=== PATIENT | female | born 1965 | race Caucasian/White ===

== ENCOUNTER 2016-11-26 12:05 | Inpatient (IN) ==
--- NOTE | 2016-11-26 12:33 | Emergency Department Note ---
Disposition Clinical Impression: Bite by animal, Cellulitis of hand Disposition: Admitted As Inpatient Condition: Good Referrals: NO,PCP [Primary Care Provider] - Forms: ED Satisfaction Letter Animal Bite HPI - General Chief Complaint: ED Animal Bite Stated Complaint: Dog Bites Time Seen by Provider: 11/26/16 12:14 Source: patient Limitations: no limitations Nursing Notes Reviewed: Yes Vital Signs Reviewed: Yes - History of Present Illness HPI Narrative: Patient comes complaint of dog bite occurred for to 5 days ago. Patient states the dog bit her over fingers and she presented to an outside hospital for evaluation. Patient states that was given IV antibiotics and started on oral pills and advised to come back for recheck. Patient states that she was unable to take oral pills because it made her vomit since this was a different medication. Patient is swelling and the pain has gotten worse over this time. Patient has inability to flex her fingers secondary to pain. Patient denies numbness and tingling denies fevers or chills associated. Patient as well as extended her head. - Related Data Home Medications Medication Instructions Recorded Confirmed Alprazolam [Xanax] 2 mg PO BID 12/10/15 11/24/16 Amitriptyline [Elavil] 10 mg PO HS 12/10/15 11/24/16 Aspirin [Adult Low Dose Aspirin EC] 81 mg PO DAILY 12/10/15 11/24/16 Baclofen [Lioresal] 10 mg PO TID 12/10/15 11/24/16 BuPROPion SR (12 HR) [Wellbutrin 150 mg PO BID 12/10/15 11/24/16 SR] Ergocalciferol (VITAMIN D2) 50,000 unit PO QWEEK 12/10/15 11/24/16 [Vitamin D2 (50,000 UNIT)] Gabapentin [Neurontin] 600 mg PO TID 12/10/15 11/24/16 Hydrochlorothiazide 25 mg PO DAILY 12/10/15 11/24/16 Potassium Chloride [K-Tab ER] 20 meq PO BID 12/10/15 11/24/16 Prazosin HCl [Minipress] 2 mg PO HS 12/10/15 11/24/16 Sertraline [Zoloft] 100 mg PO QPM 12/10/15 11/24/16 Sertraline [Zoloft] 200 mg PO DAILY 12/10/15 11/24/16 Simvastatin [Zocor] 20 mg PO HS 12/10/15 11/24/16 Previous Rx's Medication Instructions Recorded Doxycycline Hyclate [Vibramycin] 100 mg PO BID #20 capsule 11/24/16 Ciprofloxacin [Cipro] 500 mg PO BID #13 tablet 11/25/16 Clindamycin [Cleocin] 300 mg PO Q6HR #56 capsule 11/25/16 Allergies Allergy/AdvReac Type Severity Reaction Status Date / Time Penicillins [PCN] Allergy Hives Verified 11/26/16 13:27 codeine AdvReac Vomiting Verified 11/26/16 13:27 All systems ED: reviewed and negative except as stated. Past Medical History - Past Medical History Source: patient Medical history: Reports: COPD, hyperlipidemia Psychiatric history: Reports: anxiety, depression, PTSD - Social History Smoking Status: Current every day smoker Smokeless Tobacco Status: No Alcohol use: Reports: none Drug use: Reports: none Physical Exam - General Limitations: no limitations General appearance: alert, in no apparent distress - Head Head exam: atraumatic, normocephalic, normal inspection - Eye Eye exam: Present: normal appearance, PERRL, EOMI - ENT ENT exam: normal exam, normal oropharynx, mucous membranes moist - Neck Neck exam: Present: normal inspection, full ROM, trachea midline - Chest Chest inspection: Present: normal inspection, symmetric chest wall rise - Respiratory Respiratory exam: Present: normal lung sounds bilaterally - Cardiovascular Cardiovascular exam: Present: regular rate, normal rhythm, normal heart sounds - Abdominal Exam Abdominal exam: Present: soft, Non-Tender. Absent: tenderness, distention, guarding, rebound, rigidity - Extremities Exam Extremities exam: Present: other (Left index fingers held in a extended position secondary to pain and swelling. Patient appears to have tenderness along the tendon sheath. There is some swelling extending now to the thenar compartment no erythema in that area.) - Back Exam Back exam: Present: normal inspection, full ROM. Absent: tenderness - Neurological Exam Neurological exam: Present: alert, oriented X3 - Psychiatric Psychiatric exam: Present: normal affect, normal mood - Skin Skin exam: Present: warm, dry, intact, normal color Course Vital Signs Temperature 97.4 F L 11/26/16 12:07 Pulse Rate 79 11/26/16 12:07 Respiratory Rate 18 11/26/16 12:07 Blood Pressure 139/80 11/26/16 12:07 O2 Sat by Pulse Oximetry 98 11/26/16 12:07 Temperature 97.4 F L 11/26/16 12:07 Pulse Rate 77 11/26/16 12:43 Respiratory Rate 18 11/26/16 12:43 Blood Pressure 102/63 11/26/16 12:43 O2 Sat by Pulse Oximetry 99 11/26/16 12:43 Oxygen Delivery Oxygen Delivery Room Air Animal Bite - Differential Diagnosis Differential Diagnosis: Likely: bite by animal, dog bite - Lab Data Result diagrams: 11/26/16 12:32 11/26/16 12:32 Lab Results 11/26/16 11/26/16 Range/Units 12:32 12:32 WBC 6.5 (4.3-11.1) K/mcL RBC 4.35 (3.82-4.97) M/mcL Hgb 13.3 (11.5-15.4) g/dL Hct 39.1 (35.3-44.9) % MCV 89.9 (83.0-100.0) fL MCH 30.6 (28.0-33.3) pg MCHC 34.0 (31.6-35.5) g/dL RDW 14.6 H (11.5-14.5) % Plt Count 170 (140-400) K/mcL MPV 9.7 (9.4-12.4) fL Immature Gran % 0.2 (0-4) % Seg Neutrophils % 62.3 % Lymphocytes % 24.5 % Monocytes % 9.3 % Eosinophils % 3.2 % Basophils % 0.5 % Neutrophils # 4.1 (1.6-8.9) K/mcL Lymphocytes # 1.6 (0.6-4.6) K/mcL Monocytes # 0.6 (0.0-1.3) K/mcL Eosinophils # 0.2 (0.0-0.6) K/mcL Basophils # 0.0 (0.0-0.2) K/mcL Sodium 137 (136-145) mEq/L Potassium 4.1 (3.5-4.5) mEq/L Chloride 103 (98-109) mEq/L Carbon Dioxide 24 (19-29) mEq/L BUN 21 H (7-20) mg/dL Creatinine 1.10 (0.57-1.11) mg/dL Est GFR ( Amer) > 60 (> 60) Est GFR (Non-Af Amer) 52 L (> 60) BUN/Creatinine Ratio 19 (6-26) Glucose 99 (70-99) mg/dL Calculated Osmolality 287 (280-300) Calcium 9.0 (8.6-10.8) mg/dL - Radiology Data Radiology results reviewed: Yes I reviewed the patient's radiology results. Hand X-Ray 11/26/16 12:17 IMPRESSION: No acute bone or joint abnormality. Soft tissue edema greatest surrounding the 2nd distal phalanx. D/ / Artur Patel MD / Artur Patel MD Interpreting Provider: Artur Patel MD
[2016-11-26 12:43] LABS: Basophils % 0.5 %; Eosinophils # 0.2 K/mcL (0.0-0.6); Eosinophils % 3.2 %; Hematocrit 39.1 % (35.3-44.9); Hemoglobin 13.3 g/dL (11.5-15.4); Immature Granulocytes % 0.2 % (0-4); Lymphocytes # 1.6 K/mcL (0.6-4.6); Lymphocytes % 24.5 %; Mean Corpuscular Hemoglobin 30.6 pg (28.0-33.3); Mean Corpuscular Volume 89.9 fL (83.0-100.0); Mean Platelet Volume 9.7 fL (9.4-12.4); Monocytes # 0.6 K/mcL (0.0-1.3); Monocytes % 9.3 %; Neutrophils # 4.1 K/mcL (1.6-8.9); Platelet Count 170 K/mcL (140-400); Red Blood Count 4.35 M/mcL (3.82-4.97); Red Cell Distribution Width 14.6 % (11.5-14.5); Segmented Neutrophils % 62.3 %
[2016-11-26 12:56] LABS: BUN/Creatinine Ratio 19 (6-26); Blood Urea Nitrogen 21 mg/dL (7-20); Carbon Dioxide 24 mEq/L (19-29); Chloride 103 mEq/L (98-109); Glucose 99 mg/dL (70-99); Osmolality,Calculated 287 (280-300); Potassium 4.1 mEq/L (3.5-4.5); Sodium 137 mEq/L (136-145); eGFR For African Americans > 60 (> 60); eGFR For Non-African Americans 52 (> 60)
--- NOTE | 2016-11-26 13:50 | Internal Med History&Physical ---
Date of Encounter: 11/26/16 Time of Encounter: 13:30 Assessment and Plan (1) Cellulitis of hand Current visit: Yes Status: Acute Cellulitis involving the left hand index and first fingers from dog bite. Failed outpatient antibiotic treatment. Will start intravenous antibiotics. If no improvement or if cellulitis worsens will consult orthopedics. High risk for complications including sepsis. (2) Dog bite Current visit: Yes Status: Acute Qualifiers: Encounter type: initial encounter Qualified Code(s): W54.0XXA - Bitten by dog, initial encounter (3) Essential hypertension Current visit: Yes Status: Chronic Controlled. Monitor blood pressure and continue home medications. (4) Hyperlipidemia Current visit: Yes Status: Chronic Continue fenofibrate and simvastatin. Qualifiers: Hyperlipidemia type: mixed hyperlipidemia Qualified Code(s): E78.2 - Mixed hyperlipidemia Internal Medicine - H&P: HPI Chief complaint: Left hand dog bite with swelling and redness Admitted From: Emergency Dept Plans for Post Hospital Care: Home History of present illness: Ms. Senior is a 51 year old female patient with a history of hypertension, hyperlipidemia. We are today with complaints of left hand redness and swelling involving the left index finger and thumb following a dog bite. Apparently the dog bite occurred 5 days back. Patient was seen in the ER at [facility] and was placed on doxycycline initially. She however did not tolerate this medication and went back to the ER. She was then placed on clindamycin yesterday. However her swelling has not improved and so she came to the ER again today. She describes pain involving the left first and second fingers with decreased range of motion at the distal phalanx. Denies any fevers chills or night sweats. No nausea or vomiting. No diarrhea or constipation. Past Med Surg Social Fam HX - Past Medical History Medical history: COPD, hyperlipidemia Psychiatric history: anxiety, depression, PTSD - Past Surgical History Surgical History: other (Bladder stimulator device placement) - Social History Smoking Status: Current every day smoker Smokeless Tobacco Status: No Alcohol use: none Drug use: none Internal Medicine - H&P: Meds Alprazolam [Xanax] 2 mg PO BID 12/10/15 [History] Aspirin [Adult Low Dose Aspirin EC] 81 mg PO DAILY 12/10/15 [History] Baclofen [Lioresal] 10 mg PO TID 12/10/15 [History] Potassium Chloride [K-Tab ER] 20 meq PO BID 12/10/15 [History] Prazosin HCl [Minipress] 2 mg PO HS 12/10/15 [History] Sertraline [Zoloft] 100 mg PO QPM 12/10/15 [History] Simvastatin [Zocor] 20 mg PO HS 12/10/15 [History] Fenofibrate [Tricor] 54 mg PO DAILY 11/26/16 [History] HYDROcodone/Acet 5/325 mg [[place] 5-325 mg] 1 tab PO BID PRN 11/26/16 [History] Hydrochlorothiazide [Hydrochlorothiazide] 12.5 mg PO DAILY 11/26/16 [History] Lurasidone HCl [Latuda] 60 mg PO DAILY 11/26/16 [History] [place]-3/Dha/Epa/Fish Oil [Fish Oil 1,000 mg Softgel] 1 each PO DAILY 11/26/16 [ History] Propranolol [Inderal] 10 mg PO BID 11/26/16 [History] Allergies Penicillins [PCN] Allergy (Verified 11/26/16 13:27) Hives codeine Adverse Reaction (Verified 11/26/16 13:27) Vomiting All Systems PM: A 10-system review of systems was performed and is negative for pertinent findings except as documented above in the HPI. - Constitutional Constitutional: no chills, no fever(s), no night sweats - EENT Eyes: no change in vision, no discharge, no pain, no photophobia Ears: no ear discharge, no ear pain, no tinnitus Nose, mouth and throat: no dysphagia, no nasal discharge, no neck pain, no sore throat - Cardiovascular Cardiovascular ROS IM: no chest pain, no diaphoresis, no dyspnea, no lightheadedness, no palpitations, no syncope - Respiratory Respiratory: no cough, no dyspnea, no wheezing, no excessive phlegm production - Gastrointestinal Gastrointestinal: no abdominal pain, no diarrhea, no hematemesis, no hematochezia, no melena, no nausea, no vomiting - Genitourinary Genitourinary: no change in urinary stream, no dysuria, no flank pain, no hematuria - Musculoskeletal Musculoskeletal ROS IM: no numbness, no tingling - Integumentary Integumentary IM: other (Swelling and redness involving the left hand fingers), no rash, no unusual bruising - Neurological Neurological ROS: no confusion, no convulsions, no focal weakness, no numbness, no tingling, no tremor(s) - Constitutional Vitals: Temp Pulse Resp BP Pulse Ox 97.4 F L 77 18 102/63 99 11/26/16 12:07 11/26/16 12:43 11/26/16 12:43 11/26/16 12:43 11/26/16 12:43 General appearance: Present: cooperative, mild distress, A&O X 3, obese, answers questions appropriately - Head Head exam: Present: atraumatic, normocephalic - Eye Eye exam: Present: EOMI, PERRL, conjuntiva pink, sclera anicteric - Neck Neck exam general surgery: Present: supple, trachea midline. Absent: lymphadenopathy - Respiratory Respiratory exam: Present: CTAB. Absent: accessory muscle use, rales, rhonchi, wheezes - Cardiovascular Cardiovascular exam: Present: RRR, +S1, +S2. Absent: diastolic murmur, gallop, rubs, systolic murmur - GI/Abdominal GI/Abdominal exam: Present: normal bowel sounds, soft, no peritoneal signs. Absent: distended, tenderness - Extremities Exam Extremities exam: Present: warm, radial pulses palpable and symetrical. Absent : calf tenderness, cyanotic, pedal edema Additional comments: Erythema and redness involving the index and first fingers of the left hand and the tongue of the right hand. More pronounced in the left hand with decreased range of motion at the distal phalanx. No palpable abscess. - Neurological Exam Neurological exam: Present: alert, CN II-XII intact, oriented X3, no focal deficits. Absent: facial droop, speech deficit - Skin Skin exam: Present: dry, erythema (as Described above ), intact Internal Med - H&P Results - Labs CBC & Chem 7: 11/26/16 12:32 11/26/16 12:32 Labs: Short CBC 11/26/16 Range/Units 12:32 WBC 6.5 (4.3-11.1) K/mcL Hgb 13.3 (11.5-15.4) g/dL Hct 39.1 (35.3-44.9) % Plt Count 170 (140-400) K/mcL Neutrophils # 4.1 (1.6-8.9) K/mcL BMP 11/26/16 12:32 Sodium 137 Potassium 4.1 Chloride 103 Carbon Dioxide 24 BUN 21 H Creatinine 1.10 Glucose 99 Calcium 9.0 - Impressions ITS Impressions Hand X-Ray 11/26/16 12:17 IMPRESSION: No acute bone or joint abnormality. Soft tissue edema greatest surrounding the 2nd distal phalanx. D/ / Artur Patel MD / Artur Patel MD Interpreting Provider: Artur Patel MD - Attending Attestation This document has been at least partially created by [employer] recognition technology by Dr. Melendez. Errors in grammar, wording or other phrases may exist. If errors are found after the documentation is signed, they will be addressed individually in the addendum section of this document when appropriate.
[2016-11-26] MEDS ORDERED: Naloxone 0.4 MG/ML INJ IVP PRN (13:56)
[2016-11-26] MEDS ORDERED: Acetaminophen 325 MG TABLET PO PRN (13:56)
[2016-11-26] MEDS: Levofloxacin 750 MG/150 ML 750 MG/150 ML BAG IVPB SCH (16:10)
[2016-11-26] MEDS: MetroNIDAZOLE 500 MG/100 ML 500 MG/100 ML BAG IVPB SCH ×2 (16:11→23:52)
[2016-11-26] MEDS: 0.9 % Sodium Chloride 1,000 ML IVC SCH (16:11)
[2016-11-26] MEDS: Baclofen 10 MG TABLET PO SCH ×2 (16:12→21:24)
[2016-11-26] MEDS: *HR* Heparin 5,000 UNIT/ML VIAL SQ SCH (18:38)
[2016-11-26] MEDS: *HR* HYDROcodone/Acet 5/325 mg TABLET PO PRN (18:39)
[2016-11-26] MEDS: ALPRAZolam 1 MG TABLET PO SCH (21:24)
[2016-11-26] MEDS: Nicotine 21 MG PATCH.TD24 TD SCH (21:32)
[2016-11-27 05:11] LABS: Basophils % 0.3 %; Eosinophils # 0.1 K/mcL (0.0-0.6); Eosinophils % 3.1 %; Hematocrit 36.1 % (35.3-44.9); Immature Granulocytes % 0.3 % (0-4); Lymphocytes # 1.2 K/mcL (0.6-4.6); Lymphocytes % 34.8 %; Mean Corpuscular HGB Conc 32.4 g/dL (31.6-35.5); Mean Corpuscular Hemoglobin 29.3 pg (28.0-33.3); Mean Corpuscular Volume 90.3 fL (83.0-100.0); Mean Platelet Volume 9.9 fL (9.4-12.4); Monocytes # 0.3 K/mcL (0.0-1.3); Monocytes % 9.6 %; Neutrophils # 1.9 K/mcL (1.6-8.9); Platelet Count 140 K/mcL (140-400); Red Cell Distribution Width 14.6 % (11.5-14.5); Segmented Neutrophils % 51.9 %
[2016-11-27 05:16] LABS: Hemoglobin 11.7 g/dL (11.5-15.4)
[2016-11-27 05:36] LABS: BUN/Creatinine Ratio 18 (6-26); Blood Urea Nitrogen 19 mg/dL (7-20); Calcium 8.2 mg/dL (8.6-10.8); Carbon Dioxide 24 mEq/L (19-29); Chloride 107 mEq/L (98-109); Glucose 106 mg/dL (70-99); Osmolality,Calculated 295 (280-300); Potassium 3.8 mEq/L (3.5-4.5); Sodium 141 mEq/L (136-145); eGFR For African Americans > 60 (> 60); eGFR For Non-African Americans 55 (> 60)
[2016-11-27] MEDS: *HR* Heparin 5,000 UNIT/ML VIAL SQ SCH ×2 (06:05→17:43)
[2016-11-27] MEDS: 0.9 % Sodium Chloride 1,000 ML IVC SCH ×2 (06:06→15:21)
[2016-11-27] MEDS: MetroNIDAZOLE 500 MG/100 ML 500 MG/100 ML BAG IVPB SCH ×3 (07:56→23:46)
[2016-11-27] MEDS: Baclofen 10 MG TABLET PO SCH ×3 (07:56→20:20)
[2016-11-27] MEDS: Fenofibrate 54 MG TABLET PO SCH (07:57)
[2016-11-27] MEDS: Aspirin Enteric Coated 81 MG Tablet PO SCH (07:57)
[2016-11-27] MEDS: ALPRAZolam 1 MG TABLET PO SCH ×2 (07:58→20:19)
[2016-11-27] MEDS: Nicotine 21 MG PATCH.TD24 TD SCH (07:58)
[2016-11-27] MEDS: hydroCHLOROthiazide 25 MG TABLET PO SCH (07:58)
[2016-11-27] MEDS: *HR* HYDROcodone/Acet 5/325 mg TABLET PO PRN ×3 (07:58→20:20)
[2016-11-27] MEDS: (Omega-3/Dha/Epa/Fish Oil [Fish Oil 1,000 Mg Softgel]) PO SCH (07:59)
--- NOTE | 2016-11-27 14:36 | Internal Med Progress Note ---
Date of Encounter: 11/27/16 Time of Encounter: 08:00 - Assessment and plan (1) Cellulitis of hand Current Visit: Yes Status: Acute Assessment and plan: Pt was bitten by her own dog 6 days ago. She states that she plays roughly with the dog and he bit her too hard. Dog is UTD on immunizations and lives inside. Pt went to ED on day 3 after the bite and was given IV Doxycycline then sent home on po Doxy. Pt states that she took one dose that night and became ill. She had a follow up appointment in the ED the next day and was given po Clindamycin and Cipro. Pt returns yesterday for worsening symptoms and increasing pain and redness. She is being given IV Flagyl and Levaquin, she is allergic to PCN and cannot have Unasyn. Finger is red and swollen with small amount serous drainage on bandaid. Pt was seen by Dr. Cowart who will come back later this afternoon and open wounds to attempt to drain them. Pt will be NPO after midnight in preparation for possible, improbable need for surgery in the a.m. Pt has been afebrile and sl hypotensive.Xray shows no fracture or dislocation, no fb or soft tissue air, no bone distruction, soft tissue edema greatest surronding the 2nd distal phalanx. WBC 3.6. Continue IV antibiotics Monitor labs NPO after midnight for possible surgery Ortho consult Monitor site for worsening redness or increased drainage. Monitor VS (2) Dog bite Current Visit: Yes Status: Acute Assessment and plan: Plan as above. Qualifiers: Encounter type: initial encounter Qualified Code(s): W54.0XXA - Bitten by dog, initial encounter (3) Essential hypertension Current Visit: Yes Status: Chronic Assessment and plan: Pt slightly hypotensive on admission. Will continue home medications and continue to monitor VS (4) Hyperlipidemia Current Visit: Yes Status: Chronic Assessment and plan: Chronic. Continue medications from home. Qualifiers: Hyperlipidemia type: mixed hyperlipidemia Qualified Code(s): E78.2 - Mixed hyperlipidemia - Time Spent With Patient less than 15 minutes - Subjective Interval history: Pt states that initial bite was 6 days ago. She failed outpatient antibiotic therapy and was admitted here for worsening infection/cellulitis. Pt states that the dog does belong to her and is UTD on immunizations. States that finger is painful and she is unable to flex hand. - Constitutional Vitals: Temp Pulse Resp BP Pulse Ox 97.4 F L 89 17 98/63 97 11/27/16 11:53 11/27/16 11:53 11/27/16 11:53 11/27/16 11:53 11/27/16 11:53 General appearance: Present: cooperative, mild distress, A&O X 3, obese, answers questions appropriately - Head Head exam: Present: normal inspection - Eye Eye exam: Present: normal appearance - ENT ENT exam: Present: mucous membranes moist, normal exam - Neck Neck exam general surgery: Present: normal inspection. Absent: lymphadenopathy , tenderness - Respiratory Respiratory exam: Present: CTAB. Absent: chest wall tenderness, rales, rhonchi , stridor, wheezes, tachypnea - Cardiovascular Cardiovascular exam: Present: RRR, +S1, +S2. Absent: diastolic murmur, systolic murmur - Expanded Cardiovascular Exam Peripheral pulses: 2+: Dorsalis Pedis (L) PM, Dorsalis Pedis (R) PM - GI/Abdominal GI/Abdominal exam: Present: normal bowel sounds, soft. Absent: tenderness - Extremities Exam Extremities exam: Present: normal capillary refill, warm, radial pulses palpable and symetrical Additional comments: Pt has redness, pain and swelling to L index finger. Pt has wound to dorsal and palmar surface of finger, draining small amount serous fluid onto bandaid. - Expanded Upper Extremities Exam Hand wrist exam: Present: erythema, swelling, tenderness - Neurological Exam Neurological exam: Present: alert, oriented X3 Internal Medicine: Result - Labs CBC & Chem 7: 11/27/16 04:16 11/27/16 04:16 Labs: Short CBC 11/27/16 Range/Units 04:16 WBC 3.6 L (4.3-11.1) K/mcL Hgb 11.7 D (11.5-15.4) g/dL Hct 36.1 (35.3-44.9) % Plt Count 140 (140-400) K/mcL Neutrophils # 1.9 (1.6-8.9) K/mcL BMP 11/27/16 04:16 Sodium 141 Potassium 3.8 Chloride 107 Carbon Dioxide 24 BUN 19 Creatinine 1.05 Glucose 106 H Calcium 8.2 L Consult Discharge Plan - Plan Referrals: Michael Faria MD [Primary Care Provider] -
[2016-11-27] MEDS: Levofloxacin 750 MG/150 ML 750 MG/150 ML BAG IVPB SCH (15:22)
--- NOTE | 2016-11-27 20:05 | Orthopedic Consult Note ---
Date of Encounter: 11/27/16 Time of Encounter: 20:03 Assessment and Plan (1) Dog bite of left hand including fingers with infection Current Visit: No Status: Acute I splinted diagnosis in detail with the patient. She has dog bite cellulitis of the left index finger and the right thumb. The right thumb is a resolving paronychial infection which I do not feel needs any debridement at this point. Regarding the left index finger I do not feel that she has a flexor tenosynovitis but simply a localized cellulitis around her dog bite wounds. I recommendation was to spread open the wounds to encourage drainage under local anesthetic. I do not feel she needs a formal operative incision or drainage at this point. After informed consent was obtained I did anesthetize the index finger and digital block fashion on the left and with a hemostat spread open her to dog bite puncture wounds with minimal. Homans. I did culture this. I did copiously irrigate the puncture wounds and placed a sterile dressing. My recommendation would be for continued IV antibiotics and motion exercises to reduce the risk of stiffness. I will follow her clinically. The patient is aware she may require an operative debridement if she does not improve with IV antibiotics alone. My hope is that this will not be necessary, however. Qualifiers: Encounter type: initial encounter Qualified Code(s): S61.452A - Open bite of left hand, initial encounter; S61.259A - Open bite of unspecified finger without damage to nail, initial encounter History of Present Illness HPI: This patient is a 51-year-old female admitted to the hospitalist for dog bite cellulitis. The dog bite initially occurred about a week ago and it was her own dog that was up-to-date on shots. She sustained a bite to the right thumb as well as the left index finger. She had initially presented to the emergency department and was placed on oral antibiotics, but they made her stomach upset and she cannot take them. She will return to the emergency department and was eventually admitted for IV antibiotics. I was asked to assist in evaluation and management of this patient. The patient is complaining of isolated pain to the left index finger as well as the right thumb. She notes that her pain has improved in the last 24 hours since getting the antibiotics last night. She reports no feelings of illness. No numbness, tingling, or any other associated signs or symptoms. The pain on the left index finger is localized to the tip diffusely to the mid portion of the middle phalanx. No pain proximal to this area. On the right thumb the pain is localized to the dorsal tip of the thumb but not proximally past the interphalangeal joint. Movement makes the pain worse. Past Med Surg Social Fam HX - Past Medical History Medical history: COPD, hyperlipidemia Psychiatric history: anxiety, bipolar, depression, PTSD - Past Surgical History Surgical History: other - Social History Smoking Status: Current every day smoker Smokeless Tobacco Status: No Alcohol use: none Drug use: none - Family History Father Hx Family Cardiac Disorders: Yes Medications and Allergies Alprazolam [Xanax] 2 mg PO BID 12/10/15 [History] Aspirin [Adult Low Dose Aspirin EC] 81 mg PO DAILY 12/10/15 [History] Baclofen [Lioresal] 10 mg PO TID 12/10/15 [History] Potassium Chloride [K-Tab ER] 20 meq PO BID 12/10/15 [History] Prazosin HCl [Minipress] 2 mg PO HS 12/10/15 [History] Sertraline [Zoloft] 100 mg PO QPM 12/10/15 [History] Simvastatin [Zocor] 20 mg PO HS 12/10/15 [History] Fenofibrate [Tricor] 54 mg PO DAILY 11/26/16 [History] HYDROcodone/Acet 5/325 mg [[place] 5-325 mg] 1 tab PO BID PRN 11/26/16 [History] Hydrochlorothiazide [Hydrochlorothiazide] 12.5 mg PO DAILY 11/26/16 [History] Lurasidone HCl [Latuda] 60 mg PO DAILY 11/26/16 [History] [place]-3/Dha/Epa/Fish Oil [Fish Oil 1,000 mg Softgel] 1 each PO DAILY 11/26/16 [ History] Propranolol [Inderal] 10 mg PO BID 11/26/16 [History] Allergies Penicillins [PCN] Allergy (Verified 11/26/16 13:27) Hives codeine Adverse Reaction (Verified 11/26/16 13:27) Vomiting All Systems Reviewed: Constitutional and musculoskeletal systems were reviewed and are negative unless otherwise stated in history of present illness. Physical Exam - Constitutional Vitals: Temp Pulse Resp BP Pulse Ox 97.8 F 89 18 96/67 98 11/27/16 19:20 11/27/16 19:20 11/27/16 19:20 11/27/16 19:20 11/27/16 19:20 CONSTITUTIONAL -Vitals reviewed -The patient is well developed, well nourished, well groomed PSYCHIATRIC -Fully alert and oriented x 3 -Pleasant mood LEFT UPPER EXTREMITY Evaluation of the skin and the soft tissue demonstrates 2 dog bite puncture wounds of the index finger. One is on the dorsal radial aspect and one is on the volar ulnar aspect near the distal phalanx just proximal to the eponychial folds. Minimal drainage. Mild generalized swelling to the digit. Mild redness not progressing more proximally than the middle portion of the middle phalanx. She is able to flex and extend the digit with pain inhibition. No tenderness along the flexor tendon sheath proximal to her dog bites. No other digit has a significant dog bite. She is able to flex and extend the other digits well. No pain with passive motion of the shoulder, elbow, or wrist. All of the digits are sensate and well perfused. RIGHT UPPER EXTREMITY Evaluation of the right hand shows that the thumb has a mild amount of redness along the paronychial tissues with some mild drainage underneath the ulnar aspect of the nail fold. His appears to be a resolving radicular infection with minimal tenderness. Essentially no swelling. She is able to flex and extend the thumb without issue and the thumb is sensate and well-perfused. No other significant dog bite is noted. Results - Labs Result Diagrams: 11/27/16 04:16 11/27/16 04:16 Labs: Abnormal lab results WBC 3.6 K/mcL (4.3-11.1) L 11/27/16 04:16 RDW 14.6 % (11.5-14.5) H 11/27/16 04:16 Est GFR (Non-Af Amer) 55 (> 60) L 11/27/16 04:16 Glucose 106 mg/dL (70-99) H 11/27/16 04:16 Calcium 8.2 mg/dL (8.6-10.8) L 11/27/16 04:16 All other labs normal. - Diagnostic results Wrist/Hand x-ray: image reviewed (X-ray of the left hand shows mild generalized swelling of the soft tissues of the index finger without any bony abnormalities or retained foreign bodies.) Consult Discharge Plan - Plan Referrals: Michael Faria MD [Primary Care Provider] -
[2016-11-27] MEDS: Ketorolac 30 MG/ML VIAL IVP PRN (23:07)
[2016-11-28] MEDS: 0.9 % Sodium Chloride 1,000 ML IVC SCH ×3 (03:50→20:20)
[2016-11-28 05:01] LABS: Basophils % 0.3 %; Eosinophils # 0.1 K/mcL (0.0-0.6); Eosinophils % 2.9 %; Hematocrit 33.4 % (35.3-44.9); Hemoglobin 10.9 g/dL (11.5-15.4); Immature Granulocytes % 0.5 % (0-4); Lymphocytes # 1.3 K/mcL (0.6-4.6); Lymphocytes % 33.2 %; Mean Corpuscular HGB Conc 32.6 g/dL (31.6-35.5); Mean Corpuscular Hemoglobin 30.3 pg (28.0-33.3); Mean Corpuscular Volume 92.8 fL (83.0-100.0); Mean Platelet Volume 10.5 fL (9.4-12.4); Monocytes # 0.3 K/mcL (0.0-1.3); Monocytes % 8.8 %; Neutrophils # 2.1 K/mcL (1.6-8.9); Platelet Count 122 K/mcL (140-400); Red Cell Distribution Width 14.8 % (11.5-14.5); Segmented Neutrophils % 54.3 %
[2016-11-28] MEDS: *HR* Heparin 5,000 UNIT/ML VIAL SQ SCH ×2 (05:08→17:29)
[2016-11-28 05:22] LABS: BUN/Creatinine Ratio 18 (6-26); Blood Urea Nitrogen 20 mg/dL (7-20); Calcium 7.9 mg/dL (8.6-10.8); Carbon Dioxide 22 mEq/L (19-29); Chloride 113 mEq/L (98-109); Glucose 95 mg/dL (70-99); Osmolality,Calculated 298 (280-300); Potassium 4.6 mEq/L (3.5-4.5); Sodium 143 mEq/L (136-145); eGFR For African Americans > 60 (> 60); eGFR For Non-African Americans 53 (> 60)
[2016-11-28] MEDS: ALPRAZolam 1 MG TABLET PO SCH ×2 (08:02→20:21)
[2016-11-28] MEDS: Baclofen 10 MG TABLET PO SCH ×3 (08:03→20:23)
[2016-11-28] MEDS: hydroCHLOROthiazide 25 MG TABLET PO SCH (08:03)
[2016-11-28] MEDS: Fenofibrate 54 MG TABLET PO SCH (08:03)
[2016-11-28] MEDS: Nicotine 21 MG PATCH.TD24 TD SCH (08:04)
[2016-11-28] MEDS: Aspirin Enteric Coated 81 MG Tablet PO SCH (08:04)
[2016-11-28] MEDS: *HR* HYDROcodone/Acet 5/325 mg TABLET PO PRN ×2 (08:10→20:23)
[2016-11-28] MEDS: (Omega-3/Dha/Epa/Fish Oil [Fish Oil 1,000 Mg Softgel]) PO SCH (08:16)
--- NOTE | 2016-11-28 09:12 | Internal Med Progress Note ---
Date of Encounter: 11/28/16 Time of Encounter: 08:30 - Assessment and plan (1) Cellulitis of hand Current Visit: Yes Status: Acute Assessment and plan: Dr. Cowart saw pt last evening to open and drain L index finger wounds. There was not much improvement in wounds/finger from yesterday. Finger remains painful , erythematous and edematous. Pt is encouraged to try to bend her finger as much as she can to avoid it becoming stiff. There is still a small amount of serous drainage on bandaid this a.m. No leukocytosis or fever. Dr. Cowart will see pt again tomorrow morning to evaluate for possible surgical debridement. Pt will need to stay for continued IV therapy. She cannot take Unasyn due to PCN allergy, states that she gets hives with PCN and derivitives. Pain is well controlled and she denies need for change. Continue current antibiotic therapy-Levaquin and Flagyl NPO after midnight again for possible surgical debridement in the a.m. Encourage pt to bend finger Monitor labs Monitor VS for tachycardia or fever (2) Dog bite Current Visit: Yes Status: Acute Assessment and plan: Dog did belong to pt and is UTD on immunizations. Plan as above. Qualifiers: Qualified Code(s): W54.0XXA - Bitten by dog, initial encounter (3) Essential hypertension Current Visit: Yes Status: Chronic Assessment and plan: Chronic. Stable. Continue home medications Monitor VS (4) Hyperlipidemia Current Visit: Yes Status: Chronic Assessment and plan: Chronic. Stable. Continue home medications. Qualifiers: Qualified Code(s): E78.2 - Mixed hyperlipidemia - Subjective Interval history: Pt states that her finger does not feel or look better today. She said that pain is well controlled with current regimen, denies need for change or increase. Otherwise states that she is fine. - Constitutional Vitals: Temp Pulse Resp BP Pulse Ox 97.9 F 81 16 107/72 97 11/28/16 07:46 11/28/16 07:46 11/28/16 07:46 11/28/16 07:46 11/28/16 07:46 General appearance: Present: cooperative, mild distress, A&O X 3, obese, answers questions appropriately - Head Head exam: Present: normal inspection - Eye Eye exam: Present: normal appearance, conjuntiva pink - ENT ENT exam: Present: mucous membranes moist, normal exam - Neck Neck exam general surgery: Present: normal inspection. Absent: lymphadenopathy , tenderness - Respiratory Respiratory exam: Present: CTAB. Absent: chest wall tenderness, decreased breath sounds, rales, rhonchi, wheezes - Cardiovascular Cardiovascular exam: Present: RRR, +S1, +S2 - Expanded Cardiovascular Exam Peripheral pulses: 2+: Dorsalis Pedis (L) PM, Dorsalis Pedis (R) PM - GI/Abdominal GI/Abdominal exam: Present: normal bowel sounds. Absent: pulsatile mass, tenderness - Extremities Exam Extremities exam: Present: full ROM, normal capillary refill, normal inspection , warm, radial pulses palpable and symetrical. Absent: cyanotic, pedal edema, tenderness - Neurological Exam Neurological exam: Present: alert, oriented X3, no focal deficits, strengths equal and symetr throughout - Skin Skin exam: Present: erythema Additional comments: Pt with puncture wounds to L index finger, palmar and dorsal side. Pt also has puncture wound to R thumb near cuticle, that is healing well without redness or drainage. L index finger is edematous, erythematous, with serous drainage on bandaid. Internal Medicine: Result - Labs CBC & Chem 7: 11/28/16 03:58 11/28/16 03:58 Labs: Short CBC 11/28/16 Range/Units 03:58 WBC 3.8 L (4.3-11.1) K/mcL Hgb 10.9 L (11.5-15.4) g/dL Hct 33.4 L (35.3-44.9) % Plt Count 122 L (140-400) K/mcL Neutrophils # 2.1 (1.6-8.9) K/mcL BMP 11/28/16 03:58 Sodium 143 Potassium 4.6 H Chloride 113 H Carbon Dioxide 22 BUN 20 Creatinine 1.09 Glucose 95 Calcium 7.9 L Consult Discharge Plan - Plan Referrals: Michael Faria MD [Primary Care Provider] -
--- NOTE | 2016-11-28 09:33 | Orthopedics Progress Note ---
Date of Encounter: 11/28/16 Time of Encounter: 09:29 - Assessment and Plan (1) Dog bite of left hand including fingers with infection Current Visit: No Status: Acute I splinted diagnosis in detail with the patient. She has dog bite cellulitis of the left index finger and the right thumb. The right thumb is a resolving paronychial infection which I do not feel needs any debridement at this point. Regarding the left index finger I do not feel that she has a flexor tenosynovitis but simply a localized cellulitis around her dog bite wounds. I recommendation was to spread open the wounds to encourage drainage under local anesthetic. I do not feel she needs a formal operative incision or drainage at this point. After informed consent was obtained I did anesthetize the index finger and digital block fashion on the left and with a hemostat spread open her to dog bite puncture wounds with minimal. Homans. I did culture this. I did copiously irrigate the puncture wounds and placed a sterile dressing. My recommendation would be for continued IV antibiotics and motion exercises to reduce the risk of stiffness. I will follow her clinically. The patient is aware she may require an operative debridement if she does not improve with IV antibiotics alone. My hope is that this will not be necessary, however. Qualifiers: Encounter type: initial encounter Qualified Code(s): S61.452A - Open bite of left hand, initial encounter; S61.259A - Open bite of unspecified finger without damage to nail, initial encounter Subjective Interval history: S: Pain level is about 6/10 on the left index finger, and minimal on the right thumb O: Afeb, VSS Left index finger: Similar in appearance compared to yesterday. The two puncture wounds are with minimal drainage. Redness extends from the tip of the digit to the middle portion of the middle phalanx. Mild generalized swelling to the digit. No tenderness to the volar flexor tendon sheath proximal to the punctures wounds. She is able to actively flex and extend the digit with stiffness related to edema and pain inhibition. The fingertip is sensate and well perfused. Right thumb: Improvement compared to yesterday. Minimal redness about the paronychial tissues. Good motion. Sensate and well perfused. Cultures: Pending A: Left index finger and right thumb dogbite cellulitis P: -Continue IV antibiotics, elevation, coban wraps to the digits. -I discussed with the patient that we will attempt another 24 hours of IV abx. -If she does not begin to improve clinically, we will consider an operative incision and drainage of the left index finger. -I encouraged motion exercises to reduce the risk of stiffness. Objective Vital signs: Vital Signs Temp Pulse Resp BP Pulse Ox 11/28/16 07:46 97.9 F 81 16 107/72 97 11/28/16 03:15 97.9 F 83 16 104/68 97 11/27/16 23:04 97.5 F L 90 16 113/71 98 11/27/16 20:08 92/60 11/27/16 19:20 97.8 F 89 18 96/67 98 Intake and Output 11/27/16 11/28/16 11/28/16 23:59 07:59 15:59 Intake Total 370 / 370 1100 / 1100 Balance 370 / 370 1100 / 1100 Intake: IV Fluids 250 / 250 1100 / 1100 0.9 % Sodium Chloride 1, 1000 / 1000 000 ML @ 100 mls/hr IVC . Q10H [facility] Rx#:[id number] Levaquin 750mg/150 mL 750 150 / 150 mg In 150 ml @ 100 mls/ hr IVPB Q24H [facility] Rx#: [id number] Flagyl 500 MG/100 ML 500 100 / 100 100 / 100 mg In 100 ml @ 100 mls/hr IVPB Q8HR [facility] Rx#: [id number] Oral 120 / 120 Other: Meal Dinner Percent of Meal Consumed 80% Weight 97.4 kg Patient Weight 11/28/16 23:59 Weight 97.4 kg - Labs CBC & BMP: 11/28/16 03:58 11/28/16 03:58 Labs: Abnormal lab results WBC 3.8 K/mcL (4.3-11.1) L 11/28/16 03:58 RBC 3.60 M/mcL (3.82-4.97) L 11/28/16 03:58 Hgb 10.9 g/dL (11.5-15.4) L 11/28/16 03:58 Hct 33.4 % (35.3-44.9) L 11/28/16 03:58 RDW 14.8 % (11.5-14.5) H 11/28/16 03:58 Plt Count 122 K/mcL (140-400) L 11/28/16 03:58 Potassium 4.6 mEq/L (3.5-4.5) H 11/28/16 03:58 Chloride 113 mEq/L (98-109) H 11/28/16 03:58 Est GFR (Non-Af Amer) 53 (> 60) L 11/28/16 03:58 Calcium 7.9 mg/dL (8.6-10.8) L 11/28/16 03:58 Consult Discharge Plan - Plan Referrals: Michael Faria MD [Primary Care Provider] -
[2016-11-28] MEDS: MetroNIDAZOLE 500 MG/100 ML 500 MG/100 ML BAG IVPB SCH ×3 (11:05→23:32)
[2016-11-28] MEDS: Ketorolac 30 MG/ML VIAL IVP PRN ×3 (11:06→23:36)
[2016-11-28] MEDS: Levofloxacin 750 MG/150 ML 750 MG/150 ML BAG IVPB SCH (14:27)
[2016-11-29 04:26] LABS: Basophils % 0.3 %; Eosinophils # 0.1 K/mcL (0.0-0.6); Eosinophils % 3.4 %; Hematocrit 31.9 % (35.3-44.9); Lymphocytes # 1.1 K/mcL (0.6-4.6); Lymphocytes % 38.3 %; Mean Corpuscular HGB Conc 31.3 g/dL (31.6-35.5); Mean Corpuscular Hemoglobin 29.2 pg (28.0-33.3); Mean Platelet Volume 10.2 fL (9.4-12.4); Monocytes # 0.2 K/mcL (0.0-1.3); Neutrophils # 1.5 K/mcL (1.6-8.9); Platelet Count 134 K/mcL (140-400); Red Blood Count 3.43 M/mcL (3.82-4.97); Red Cell Distribution Width 14.7 % (11.5-14.5)
[2016-11-29 04:40] LABS: Calcium 8.4 mg/dL (8.6-10.8); Potassium 4.3 mEq/L (3.5-4.5)
[2016-11-29] MEDS: *HR* Heparin 5,000 UNIT/ML VIAL SQ SCH ×2 (06:02→16:53)
[2016-11-29] MEDS: 0.9 % Sodium Chloride 1,000 ML IVC SCH (06:03)
[2016-11-29] MEDS: Ketorolac 30 MG/ML VIAL IVP PRN (08:30)
[2016-11-29] MEDS: Nicotine 21 MG PATCH.TD24 TD SCH (08:31)
[2016-11-29] MEDS: hydroCHLOROthiazide 25 MG TABLET PO SCH (08:32)
[2016-11-29] MEDS: MetroNIDAZOLE 500 MG/100 ML 500 MG/100 ML BAG IVPB SCH ×2 (08:33→16:04)
[2016-11-29] MEDS: Fenofibrate 54 MG TABLET PO SCH (08:34)
[2016-11-29] MEDS: Aspirin Enteric Coated 81 MG Tablet PO SCH (08:34)
[2016-11-29] MEDS: ALPRAZolam 1 MG TABLET PO SCH ×2 (08:34→21:40)
[2016-11-29] MEDS: Baclofen 10 MG TABLET PO SCH ×3 (08:34→21:40)
[2016-11-29] MEDS: (Omega-3/Dha/Epa/Fish Oil [Fish Oil 1,000 Mg Softgel]) PO SCH (08:34)
--- NOTE | 2016-11-29 09:48 | Orthopedics Progress Note ---
Date of Encounter: 11/29/16 Time of Encounter: 09:46 - Assessment and Plan (1) Dog bite of left hand including fingers with infection Current Visit: No Status: Acute I splinted diagnosis in detail with the patient. She has dog bite cellulitis of the left index finger and the right thumb. The right thumb is a resolving paronychial infection which I do not feel needs any debridement at this point. Regarding the left index finger I do not feel that she has a flexor tenosynovitis but simply a localized cellulitis around her dog bite wounds. I recommendation was to spread open the wounds to encourage drainage under local anesthetic. I do not feel she needs a formal operative incision or drainage at this point. After informed consent was obtained I did anesthetize the index finger and digital block fashion on the left and with a hemostat spread open her to dog bite puncture wounds with minimal. Homans. I did culture this. I did copiously irrigate the puncture wounds and placed a sterile dressing. My recommendation would be for continued IV antibiotics and motion exercises to reduce the risk of stiffness. I will follow her clinically. The patient is aware she may require an operative debridement if she does not improve with IV antibiotics alone. My hope is that this will not be necessary, however. Qualifiers: Encounter type: initial encounter Qualified Code(s): S61.452A - Open bite of left hand, initial encounter; S61.259A - Open bite of unspecified finger without damage to nail, initial encounter Subjective Interval history: S: Pain level slightly improved on the left index finger O: Afeb, VSS Left index finger: Swelling and redness with definite improvement. The two puncture wounds are with minimal drainage. Mild generalized swelling to the digit. No tenderness to the volar flexor tendon sheath proximal to the punctures wounds. She is able to actively flex and extend the digit with stiffness related to edema and pain inhibition. The fingertip is sensate and well perfused. Right thumb: Improvement compared to yesterday. Minimal redness about the paronychial tissues. Good motion. Sensate and well perfused. Cultures: Negative A: Left index finger and right thumb dogbite cellulitis, improved since yesterday clinically P: -Continue IV antibiotics for another 24 hours since she is just now turning the corner -Coban wrap, elevatoin -I encouraged motion exercises to reduce the risk of stiffness. -Anticipate switch to oral abx tomorrow Objective Vital signs: Vital Signs Temp Pulse Resp BP Pulse Ox 11/29/16 07:17 97.6 F 78 16 102/68 97 11/28/16 22:53 98.1 F 83 18 98/63 98 11/28/16 18:34 97.6 F 81 16 107/73 98 11/28/16 15:45 98.0 F 77 16 93/67 97 11/28/16 11:22 98.0 F 89 14 93/59 98 Intake and Output 11/28/16 11/29/16 11/29/16 23:59 07:59 15:59 Intake Total 250 / 250 1100 / 1100 Balance 250 / 250 1100 / 1100 Intake: IV Fluids 250 / 250 1100 / 1100 0.9 % Sodium Chloride 1, 0 / 0 1000 / 1000 000 ML @ 100 mls/hr IVC . Q10H [facility] Rx#:[id number] Levaquin 750mg/150 mL 750 150 / 150 mg In 150 ml @ 100 mls/ hr IVPB Q24H [facility] Rx#: [id number] Flagyl 500 MG/100 ML 500 100 / 100 100 / 100 mg In 100 ml @ 100 mls/hr IVPB Q8HR [facility] Rx#: [id number] - Labs CBC & BMP: 11/29/16 03:19 11/29/16 03:19 Labs: Abnormal lab results WBC 3.0 K/mcL (4.3-11.1) L 11/29/16 03:19 RBC 3.43 M/mcL (3.82-4.97) L 11/29/16 03:19 Hgb 10.0 g/dL (11.5-15.4) L 11/29/16 03:19 Hct 31.9 % (35.3-44.9) L 11/29/16 03:19 MCHC 31.3 g/dL (31.6-35.5) L 11/29/16 03:19 RDW 14.7 % (11.5-14.5) H 11/29/16 03:19 Plt Count 134 K/mcL (140-400) L 11/29/16 03:19 Neutrophils # 1.5 K/mcL (1.6-8.9) L 11/29/16 03:19 Chloride 110 mEq/L (98-109) H 11/29/16 03:19 Creatinine 1.23 mg/dL (0.57-1.11) H 11/29/16 03:19 Est GFR ( Amer) 55 (> 60) L 11/29/16 03:19 Est GFR (Non-Af Amer) 46 (> 60) L 11/29/16 03:19 Calcium 8.4 mg/dL (8.6-10.8) L 11/29/16 03:19 Consult Discharge Plan - Plan Referrals: Michael Faria MD [Primary Care Provider] -
[2016-11-29] MEDS: *HR* HYDROcodone/Acet 10/325 mg TABLET PO PRN ×2 (14:24→21:40)
[2016-11-29] MEDS: Levofloxacin 750 MG/150 ML 750 MG/150 ML BAG IVPB SCH (14:24)
[2016-11-29] MEDS: *HR* Morphine 2 MG/ML SYRINGE IVP PRN (16:53)
--- NOTE | 2016-11-29 18:42 | Internal Med Progress Note ---
Date of Encounter: 11/29/16 Time of Encounter: 13:30 - Assessment and plan (1) Dog bite of left hand including fingers with infection Current Visit: No Status: Acute Assessment and plan: Appreciate orthopedic service input. Patient underwent irrigation of wound. Wound cultures taken. Continue IV Levaquin and Flagyl. Qualifiers: Encounter type: initial encounter Qualified Code(s): S61.452A - Open bite of left hand, initial encounter; S61.259A - Open bite of unspecified finger without damage to nail, initial encounter (2) Essential hypertension Current Visit: Yes Status: Chronic Assessment and plan: Chronic. Stable. Hold home dose of hydrochlorothiazide and propranolol given low normal blood pressure due to Pain medications. (3) Diarrhea Current Visit: Yes Status: Acute Assessment and plan: Check C. difficile. Qualifiers: Diarrhea type: unspecified type Qualified Code(s): R19.7 - Diarrhea, unspecified (4) Hyperlipidemia Current Visit: Yes Status: Chronic Assessment and plan: Chronic. Stable. Continue home medications. Qualifiers: Hyperlipidemia type: mixed hyperlipidemia Qualified Code(s): E78.2 - Mixed hyperlipidemia - Subjective Interval history: Patient complains of pain in left index finger worse after incision and irrigation this morning. sHe also reports loose stools. - Constitutional Vitals: Temp Pulse Resp BP Pulse Ox 98.0 F 84 16 105/69 97 11/29/16 15:50 11/29/16 15:50 11/29/16 15:50 11/29/16 15:50 11/29/16 15:50 General appearance: Present: cooperative, mild distress, A&O X 3, obese, answers questions appropriately - Eye Eye exam: Present: PERRL, sclera anicteric - ENT ENT exam: Present: mucous membranes moist - Neck Neck exam general surgery: Present: supple, trachea midline. Absent: lymphadenopathy - Respiratory Respiratory exam: Present: CTAB - Cardiovascular Cardiovascular exam: Present: RRR - GI/Abdominal GI/Abdominal exam: Present: normal bowel sounds, soft. Absent: distended, tenderness - Extremities Exam Extremities exam: Absent: pedal edema Additional comments: there are multiple puncture wounds at L index finger, palmar and dorsal areas with minimal drainage. She also has puncture wounds to R thumb near cuticle, that is healing well without redness or drainage. L index finger is status post irrigation, erythematous and swollen. - Back Exam Back exam: Absent: CVA tenderness (L), CVA tenderness (R) - Neurological Exam Neurological exam: Present: alert, oriented X3. Absent: facial droop, speech deficit - Skin Skin exam: Absent: rash Internal Medicine: Result - Labs CBC & Chem 7: 11/29/16 03:19 11/29/16 03:19 Labs: Short CBC 11/29/16 Range/Units 03:19 WBC 3.0 L (4.3-11.1) K/mcL Hgb 10.0 L (11.5-15.4) g/dL Hct 31.9 L (35.3-44.9) % Plt Count 134 L (140-400) K/mcL Neutrophils # 1.5 L (1.6-8.9) K/mcL BMP 11/29/16 03:19 Sodium 142 Potassium 4.3 Chloride 110 H Carbon Dioxide 26 BUN 18 Creatinine 1.23 H Glucose 94 Calcium 8.4 L Consult Discharge Plan - Plan Referrals: Michael Faria MD [Primary Care Provider] -
[2016-11-30] MEDS: MetroNIDAZOLE 500 MG/100 ML 500 MG/100 ML BAG IVPB SCH ×2 (00:26→08:06)
[2016-11-30] MEDS: *HR* Morphine 2 MG/ML SYRINGE IVP PRN ×2 (00:27→11:37)
[2016-11-30 04:36] LABS: Basophils % 0.5 %; Eosinophils # 0.1 K/mcL (0.0-0.6); Eosinophils % 2.7 %; Hematocrit 31.6 % (35.3-44.9); Hemoglobin 10.1 g/dL (11.5-15.4); Immature Granulocytes % 0.8 % (0-4); Lymphocytes # 1.2 K/mcL (0.6-4.6); Lymphocytes % 31.9 %; Mean Corpuscular Hemoglobin 29.4 pg (28.0-33.3); Mean Corpuscular Volume 91.9 fL (83.0-100.0); Mean Platelet Volume 10.4 fL (9.4-12.4); Monocytes # 0.3 K/mcL (0.0-1.3); Neutrophils # 2.1 K/mcL (1.6-8.9); Platelet Count 144 K/mcL (140-400); Red Blood Count 3.44 M/mcL (3.82-4.97); Red Cell Distribution Width 14.7 % (11.5-14.5); Segmented Neutrophils % 57.1 %
[2016-11-30 04:51] LABS: BUN/Creatinine Ratio 15 (6-26); Blood Urea Nitrogen 16 mg/dL (7-20); Calcium 7.8 mg/dL (8.6-10.8); Carbon Dioxide 21 mEq/L (19-29); Chloride 109 mEq/L (98-109); Glucose 115 mg/dL (70-99); Magnesium 1.3 mg/dL (1.6-2.6); Osmolality,Calculated 292 (280-300); Potassium 4.1 mEq/L (3.5-4.5); Sodium 140 mEq/L (136-145); eGFR For African Americans > 60 (> 60); eGFR For Non-African Americans 53 (> 60)
[2016-11-30 04:54] LABS: Albumin 2.5 g/dL (3.5-5.0); Albumin/Globulin Ratio 0.9 (1.1-2.2); Bilirubin,Direct 0.1 mg/dL (0.0-0.5); Bilirubin,Total 0.1 mg/dL (0.2-1.2); Globulin 2.8 g/dL (2.4-3.5); Total Protein 5.3 g/dL (6.0-8.3)
[2016-11-30] MEDS: *HR* Heparin 5,000 UNIT/ML VIAL SQ SCH (06:32)
[2016-11-30] MEDS: *HR* HYDROcodone/Acet 10/325 mg TABLET PO PRN (07:13)
--- NOTE | 2016-11-30 07:55 | Orthopedics Progress Note ---
Date of Encounter: 11/30/16 Time of Encounter: 07:53 - Assessment and Plan (1) Dog bite of left hand including fingers with infection Current Visit: No Status: Acute I splinted diagnosis in detail with the patient. She has dog bite cellulitis of the left index finger and the right thumb. The right thumb is a resolving paronychial infection which I do not feel needs any debridement at this point. Regarding the left index finger I do not feel that she has a flexor tenosynovitis but simply a localized cellulitis around her dog bite wounds. I recommendation was to spread open the wounds to encourage drainage under local anesthetic. I do not feel she needs a formal operative incision or drainage at this point. After informed consent was obtained I did anesthetize the index finger and digital block fashion on the left and with a hemostat spread open her to dog bite puncture wounds with minimal. Homans. I did culture this. I did copiously irrigate the puncture wounds and placed a sterile dressing. My recommendation would be for continued IV antibiotics and motion exercises to reduce the risk of stiffness. I will follow her clinically. The patient is aware she may require an operative debridement if she does not improve with IV antibiotics alone. My hope is that this will not be necessary, however. Qualifiers: Encounter type: initial encounter Qualified Code(s): S61.452A - Open bite of left hand, initial encounter; S61.259A - Open bite of unspecified finger without damage to nail, initial encounter Subjective Interval history: S: Did well overnight. Pain improved. O: Afeb, VSS Left index finger: Continued improvement. Minimal generalized swelling to the digit. No tenderness to the volar flexor tendon sheath proximal to the punctures wounds. She is able to actively flex and extend the digit with stiffness related to edema and pain inhibition. The fingertip is sensate and well perfused. Right thumb: Improvement compared to yesterday. Minimal redness about the paronychial tissues. Good motion. Sensate and well perfused. Cultures: Negative A: Left index finger and right thumb dogbite cellulitis, with continued improvement P: -Switch to oral antibiotics. -Coban wrap, elevatoin. -I encouraged motion exercises to reduce the risk of stiffness. -Daily peroxide soaks taught to the patient. -Follow up with me in 1 week for a clinical reevaluation. Objective Vital signs: Vital Signs Temp Pulse Resp BP Pulse Ox 03/20/17 07:44 97.8 F 81 16 105/70 98 11/30/16 04:22 97.9 F 81 17 88/59 97 11/30/16 00:36 98.0 F 86 16 107/63 98 11/29/16 19:47 98.1 F 90 16 105/59 98 11/29/16 15:50 98.0 F 84 16 105/69 97 11/29/16 11:46 110 95/60 11/29/16 11:05 97.6 F 78 16 88/55 97 Intake and Output 11/29/16 11/29/16 11/30/16 15:59 23:59 07:59 Intake Total 650 / 650 1200 / 1200 Balance 650 / 650 1200 / 1200 Intake: IV Fluids 410 / 410 1200 / 1200 0.45% Sodium Chloride 1000 / 1000 1000 Ml 1000 Ml 1,000 ML @ 60 mls/hr IVC .[id number] [facility] Rx#:[id number] 0.9 % Sodium Chloride 1, 310 / 310 000 ML @ 100 mls/hr IVC . Q10H [facility] Rx#:[id number] Flagyl 500 MG/100 ML 500 100 / 100 200 / 200 mg In 100 ml @ 100 mls/hr IVPB Q8HR [facility] Rx#: [id number] Oral 240 / 240 Other: Meal Lunch Percent of Meal Consumed 90% # Voids 1 Weight 98.1 kg Patient Weight 11/30/16 23:59 Weight 98.1 kg - Labs CBC & BMP: 11/30/16 03:12 11/30/16 03:12 Labs: Abnormal lab results WBC 3.7 K/mcL (4.3-11.1) L 11/30/16 03:12 RBC 3.44 M/mcL (3.82-4.97) L 11/30/16 03:12 Hgb 10.1 g/dL (11.5-15.4) L 11/30/16 03:12 Hct 31.6 % (35.3-44.9) L 11/30/16 03:12 RDW 14.7 % (11.5-14.5) H 11/30/16 03:12 Est GFR (Non-Af Amer) 53 (> 60) L 11/30/16 03:12 Glucose 115 mg/dL (70-99) H 11/30/16 03:12 Calcium 7.8 mg/dL (8.6-10.8) L 11/30/16 03:12 Magnesium 1.3 mg/dL (1.6-2.6) L 11/30/16 03:12 Total Bilirubin 0.1 mg/dL (0.2-1.2) L 11/30/16 03:12 AST 38 Units/L (5-34) H 11/30/16 03:12 Serum Total Protein 5.3 g/dL (6.0-8.3) L 11/30/16 03:12 Albumin 2.5 g/dL (3.5-5.0) L 11/30/16 03:12 Albumin/Globulin Ratio 0.9 (1.1-2.2) L 11/30/16 03:12 Consult Discharge Plan - Plan Referrals: Michael Faria MD [Primary Care Provider] -
[2016-11-30] MEDS: ALPRAZolam 1 MG TABLET PO SCH (08:05)
[2016-11-30] MEDS: Fenofibrate 54 MG TABLET PO SCH (08:05)
[2016-11-30] MEDS: Aspirin Enteric Coated 81 MG Tablet PO SCH (08:06)
[2016-11-30] MEDS: Baclofen 10 MG TABLET PO SCH (08:06)
[2016-11-30] MEDS: Nicotine 21 MG PATCH.TD24 TD SCH (08:14)
[2016-11-30] MEDS ORDERED: Magnesium Sulfate 2 GM in D5% in Water 100 ML IVPB ONE (10:00)
--- NOTE | 2016-11-30 10:28 | Discharge Summary ---
Date of Encounter: 11/30/16 Time of Encounter: 10:26 - Discharge Diagnosis (1) Dog bite of left hand including fingers with infection Priority: Primary Status: Acute Qualifiers: Encounter type: initial encounter Qualified Code(s): S61.452A - Open bite of left hand, initial encounter; S61.259A - Open bite of unspecified finger without damage to nail, initial encounter (2) Essential hypertension Priority: Secondary Status: Chronic (3) Diarrhea Priority: Primary Status: Acute Qualifiers: Diarrhea type: unspecified type Qualified Code(s): R19.7 - Diarrhea, unspecified (4) Hyperlipidemia Priority: Secondary Status: Chronic Qualifiers: Hyperlipidemia type: mixed hyperlipidemia Qualified Code(s): E78.2 - Mixed hyperlipidemia (5) Hypomagnesemia Priority: Primary Status: Acute - Discharge Medications Prescriptions: HYDROcodone/Acet 10/325 mg [[place] 10-325 mg] 1 each PO Q6H PRN #30 tablet PRN Reason: Moderate to Severe Pain (4-10) Levofloxacin [Levaquin] 500 mg PO DAILY #7 tablet Magnesium Oxide [Mag-Ox] 400 mg PO BID #60 tablet MetroNIDAZOLE [Flagyl] 500 mg PO TID #23 tablet Nicotine Patch [Nicoderm] 21 mg TD DAILY #30 patch.td24 Home Medications: Alprazolam [Xanax] 2 mg PO BID 12/10/15 [History] Aspirin [Adult Low Dose Aspirin EC] 81 mg PO DAILY 12/10/15 [History] Baclofen [Lioresal] 10 mg PO TID 12/10/15 [History] Prazosin HCl [Minipress] 2 mg PO HS 12/10/15 [History] Sertraline [Zoloft] 100 mg PO QPM 12/10/15 [History] Simvastatin [Zocor] 20 mg PO HS 12/10/15 [History] Fenofibrate [Tricor] 54 mg PO DAILY 11/26/16 [History] Lurasidone HCl [Latuda] 60 mg PO DAILY 11/26/16 [History] [place]-3/Dha/Epa/Fish Oil [Fish Oil 1,000 mg Softgel] 1 each PO DAILY 11/26/16 [ History] Sertraline [Zoloft] 200 mg PO QAM 11/29/16 [History] HYDROcodone/Acet 10/325 mg [Atmore 10-325 mg] 1 each PO Q6H PRN #30 tablet [Rx] Levofloxacin [Levaquin] 500 mg PO DAILY #7 tablet 11/30/16 [Rx] Magnesium Oxide [Mag-Ox] 400 mg PO BID #60 tablet 11/30/16 [Rx] MetroNIDAZOLE [Flagyl] 500 mg PO TID #23 tablet 11/30/16 [Rx] Nicotine Patch [Nicoderm] 21 mg TD DAILY #30 patch.td24 11/30/16 [Rx] Allergies/Adverse Reactions: Allergies Penicillins [PCN] Allergy (Verified 11/26/16 13:27) Hives codeine Adverse Reaction (Verified 11/26/16 13:27) Vomiting Date of admission: 11/27/16 15:19 Primary care physician: Michael Gallardo - Patient Status Disposition: Home, Self-Care Condition: Good Functional capacity at discharge: independent ambulation Overall status at discharge: patient is progressing back to baseline - Discharge Instructions Instructions: Cellulitis (DC) Follow Up With: Michael Faria MD [Primary Care Provider] - Abdias Cowart MD [Partnered Physician] - (We have requested a follow up appointment with Dr Cowart for 1 week. The office will call you at home with an appointment date and time. ) - Diet and Activity Activity: resume usual activities as tolerated Diet: low fat, low cholesterol, low salt diet Interval History: Patient feels better today. The pain at her left index finger is better compared to admission and the swelling is going down. Hospital course: Ms. Senior is a 51 year old female with past medical history of COPD, PTSD, hypertension and hyperlipidemia. She sustained a dog bite at her left hand 5 days before presentation was prescribed oral doxycycline however pain was unbearable the day of admission. Patient was started on IV Levaquin and IV Flagyl and underwent irrigation of wound at her left index finger with significant improvement of her symptoms. PLAN: Oral Levaquin and oral Flagyl for a total course of 10 days. Follow-up in the orthopedic clinic in one week. - Time Spent with Patient Total time spent providing and/or coordinating discharge services: - Constitutional Vitals: Temp Pulse Resp BP Pulse Ox 97.8 F 81 16 105/70 98 11/30/16 07:44 11/30/16 07:44 11/30/16 07:44 11/30/16 07:44 11/30/16 07:44 General appearance: Present: cooperative, mild distress, A&O X 3, obese, answers questions appropriately
[2016-11-30 11:13] VITALS: BP 85/55
== END 2016-11-30 13:15 | disposition home or self-care (01) | DRG 384 ==
LOC: EMEROO 12:05 → 3BNU 12:05 → SUATTDRO 11-27 15:19
PROVIDERS: ADMIT Registered Nurse; ATTEND Internal Medicine